=== PATIENT | female | born 1985 | race Hispanic/Latino ===

== ENCOUNTER 2019-12-04 18:57 | Inpatient (IN) | payer BC ==
[2019-12-04] MEDS ORDERED: Ringers Lactate 1,000 ML IV PRN (19:34)
[2019-12-04] MEDS ORDERED: NA CIT/CITRIC AC 30 ML ORAL UDC PO ONE (19:36)
[2019-12-04] MEDS ORDERED: CLINDAMYCIN INJ 600 MG in NA CHLORIDE 0.9% 50 ML IV ONE (19:36)
[2019-12-04] MEDS ORDERED: CLINDAMYCIN 600MG/D5W 600 MG/50 ML BAG IV ONE (19:45)
[2019-12-04] MEDS ORDERED: METOCLOPRAMIDE 10 MG/2mL INJ ONE (19:47)
[2019-12-04] MEDS ORDERED: CLINDAMYCIN 900MG/D5W 0 MG/0 ML IVPB IV ONE (19:47)
[2019-12-04] MEDS ORDERED: FAMOTIDINE 20 MG/2 ML VIAL IV ONE (19:48)
[2019-12-04] MEDS ORDERED: NA CIT/CITRIC AC 30 ML ORAL UDC ONE (19:48)
[2019-12-04] MEDS ORDERED: CEFAZOLIN/SWI 1gm 1 GM/10 ML SYR IV SCH (20:00)
[2019-12-04] MEDS ORDERED: LIDOCAINE 1% MPF 30 ML VIAL ONE (20:00)
[2019-12-04] MEDS ORDERED: METOCLOPRAMIDE 10 MG/2mL INJ IV SCH (20:00)
[2019-12-04] MEDS ORDERED: METHYLERGONOVINE 0.2MG/ML AMP IM ONE (20:00)
[2019-12-04] MEDS ORDERED: CARBOPROST TROME 250 MCG/ML IM ONE (20:00)
[2019-12-04] MEDS ORDERED: Ringers Lactate 1,000 ML IV SCH (20:00)
[2019-12-04] MEDS ORDERED: OXYTOCIN 10 UNIT/ML ML IV ONE (20:05)
[2019-12-04] MEDS ORDERED: MORPHINE SULFATE/PF 1 MG/ML (10 ML AMP) ONE (20:06)
[2019-12-04] MEDS ORDERED: BUPIVACAINE 0.75% (PF) 2 ML SP ONE (20:07)
[2019-12-04] MEDS ORDERED: LIDOCAINE 1% MPF 5 ML VIAL ONE (20:09)
[2019-12-04 20:14] LABS: Absolute Lymphocytes (CBC) 2.3 K/uL (0.7-4.9); Basophils % 0.4 % (0-1.3); Hematocrit 38.2 % (36.0-45.0); Lymphocytes % 27.7 % (15.3-44.8); MPV 9.5 fL (7.6-11.3); RBC Red Blood Cell Count 4.32 M/uL (3.86-4.86)
[2019-12-04] MEDS ORDERED: ONDANSETRON 4 MG (ODT) TAB PO PRN (20:48)
[2019-12-04] MEDS ORDERED: ONDANSETRON 4 MG/2 ML VIAL IV PRN (20:48)
[2019-12-04] MEDS ORDERED: Oxycodone HCl/Acetaminophen 1 TAB TAB PO PRN ×2 (20:48)
[2019-12-04] MEDS ORDERED: BISACODYL 10 MG RECTAL SUPP RECT PRN (20:48)
[2019-12-04] MEDS ORDERED: KETOROLAC 30 MG/ML INJ IV PRN (20:48)
[2019-12-04] MEDS ORDERED: DIPHENHYDRAMINE 25 MG TAB/CAP PO PRN (20:48)
[2019-12-04] MEDS ORDERED: CEFAZOLIN 1GM (PREMIX IV) 1 GM/50 ML BAG IV ONE (20:48)
[2019-12-04] MEDS ORDERED: ACETAMINOPHEN 500 MG TAB PO PRN ×2 (20:48)
[2019-12-04] MEDS ORDERED: KETOROLAC 30 MG/ML INJ IM PRN (20:48)
[2019-12-04] MEDS: OXYTOCIN/LR 20 UNIT/1,000 ML BAG IV SCH (21:00)
[2019-12-04 21:48] VITALS: BMI 26.9
--- NOTE | 2019-12-05 01:40 | OP ---
Surgeon: Rian Mendez MD Indications: This is a 34-year-old 3, para 2, at 37 weeks, [facility]. The patient is known to have a breech presentation, but they had not yet sent her to meet her surgeon and did not plan to deliver in the [facility] [place], but apparently had made no other plans. The patient experienced spontaneous rupture of membranes at [facility] about an hour prior to admission and then started having very strong contractions and therefore dec ided to come here. She had not eaten for 6 hours prior to admission. On admission, she was 6 to 7 c m, breech presentation. Spontaneous rupture of membranes had indeed occurred. 15 to 20 minutes late r, she was 9 cm, but the baby was at the same station. The patient requested . Infection; blood loss; anesthetic complications; injury to bladder, bowel, ureter; postoperative complications; clots in legs; pneumonia discussed. Surgery crew was called, Dr. Winters for Anesthesia, Dr. Radha kat sales vendor surgeon, Dr. Wilkinson for Pediatrics. Description Of Procedure: The patient was taken to surgery. Spinal block was performed. She was pr epped and draped. Time-out was performed. She was given 600 mg of Cleocin as the patient states nir t she is allergic to penicillin and she gets hives. Low-transverse incision was created. Incision w as carried to the fascia. The fascia was incised and incision carried transversely bilaterally. Ant erior and posterior fascial planes were developed with both blunt and sharp dissection. Rectus muscl es were . Peritoneum entered bluntly. Retraction applied. Bladder flap developed. Low-tr ansverse uterine incision created. A 5 pounds 11 ounces male infant was delivered through the incisi on without difficulties, Apgars 8 and 9. Handed off to Dr. Wilkinson. Cord blood specimen obtained, placenta removed manually, uterus cleared of clot and blood and exteriorized. Uterus closed with a r unning locked stitch of 1 chromic. No further bleeding was seen. Estimated blood loss 700 cc or les s. Gutters cleared of clot and blood. Uterus replaced in the peritoneal cavity. Again, suture line inspected, noted to be intact without bleeding. The rectus muscles were reapproximated with 0 Vicry l two interrupted stitches. The fascia was closed with 1 Vicryl running from either angle to the mid line. Subcutaneous tissue closed with 2-0 plain. Ruby applied. The patient tolerated all proced ures well and transferred back to her room in good condition. Final Diagnoses: Intrauterine gestation, 37 weeks, compound breech presentation, requested , spinal block anesthesia. STIVEN/SHREYAS Voice ID: [id number] Report ID: [id number]
[2019-12-05] MEDS ORDERED: CLINDAMYCIN INJ 600 MG in NA CHLORIDE 0.9% 50 ML IV SCH (04:00)
[2019-12-05] MEDS ORDERED: CLINDAMYCIN 600MG/D5W 600 MG/50 ML BAG IV ONE (04:03)
[2019-12-05] MEDS: OXYTOCIN/LR 20 UNIT/1,000 ML BAG IV SCH (08:35)
[2019-12-05] MEDS ORDERED: FAMOTIDINE 20 MG/2 ML VIAL IV SCH (09:00)
--- NOTE | 2019-12-05 12:16 | PN ---
Postoperatively, patient has done quite well. H and H with expected change. Lochia is minimal. Vit als are all stable. Pulse is in the 60 range. We will begin ambulation. Discontinue Quarles and IV a t lunchtime. Begin regular diet at that point too. Full postoperative discussion. Patient wishes t o come back to my office in 1 week for followup visit and her 6-week checkup. We discussed con trol. No post spinal block problems at this point. Patient is AB positive, immune to rubella. We w ill offer Tdap before she leaves. STIVEN/SHREYAS Voice ID: [id number] Report ID: [id number]
[2019-12-05] MEDS: IBUPROFEN 200 MG TAB PO PRN ×2 (14:00→22:00)
[2019-12-05] MEDS ORDERED: MAGNESIUM HYDROXIDE 8% 30 ML PO PRN (20:48)
[2019-12-06 05:54] LABS: RPR (Rapid Plasma Reagin) NON-REACT (NON-REACT)
[2019-12-06] MEDS: IBUPROFEN 200 MG TAB PO PRN (08:30)
[2019-12-06 12:48] VITALS: BP 121/76; TEMP 87
--- NOTE | 2019-12-06 15:31 | PREOPHP ---
Date of Admission: 12/04/2019 This is a 34-year-old 3, para 2, 37 weeks, followed by [facility], noted to borja ve a breech. They tried to turn the baby to no avail. [facility]. Bag of water broke about an hour and a half ago. The patient started havin g hard contractions, decided to come here instead of going there. She was 6-7 cm on admission, that was less than 20 minutes ago and now she is about 9 and +1 station, compound presentation. I can fee l the foot. The patient is quite calm. Baby looks good on the monitor. No labs are available. We have talked to the patient. She says she would prefer a if we have time. We will get ever ything ready. Anesthesia has been notified. Surgical crew, pediatrics, and I will attempt to get an emergency medicine physician assistant surgeon to help me. She is allergic to penicillin, which gives her hives. I have ordered Cleocin 600 mg. Heart and lungs are clear. Pelvic exam is as stated. Allergic to penicillin, but otherwise healthy female. We will proceed to the back where we will either perform a if we have time or vaginal delivery depending upon what the situation is at the time. STIVEN/SHREYAS Voice ID: [id number]
--- NOTE | 2019-12-07 04:03 | DS ---
Date of Discharge: 12/06/2019 Hospital Course: A 34-year-old 3, para 2, with breech presentation, came in from home. Rupt ure of membranes in an active labor 6-7 cm on admission. Requesting section. This was perf ormed at 37 weeks. She was delivered of a 5 pounds 11 ounces, male infant, Apgars [address] Anisha thompson in pediatric attendance. 700 cc blood loss. Low transverse uterine incision. Cleocin pre and postop for prophylaxis . Postoperatively, she is afebrile, ambulating, voiding. Lochia is normal. She will be dismissed this morning to report back to my office or Friday of this w andreafski for staple removal. To report any temperature elevation of 100 degrees or greater, severe pain, heavy bleeding, or any other type of abnormalities. She has already had her Tdap shot. She has no p ost spinal block problems. Dismissed with tramadol, although she may elect to take Motrin instead. Rh positive, immune to Rubella. Final Diagnoses: Intrauterine gestation 37 weeks, breech-compound presentation, primary sec tion, spinal block anesthesia. STIVEN/SHREYAS Voice ID: [id number] Report ID: [id number]
[2019-12-07 19:28] LABS: HBsAG Nonreactive (Nonreactive)
== END 2019-12-06 08:25 | disposition home or self-care (01) | DRG 788 ==
LOC: L&D 18:57 → 2ND-WC 19:32
PROVIDERS: ADMIT Specialist; ATTEND Specialist
PROC: 10D00Z1 Extraction of Products of Conception, Low, Open Approach (ICD-10-PCS; principal; 2019-12-04)
DX: O64.8XX0 Obstructed labor due to other malposition and malpresentation, not applicable or unspecified (principal); Z3A.37 37 weeks gestation of pregnancy; Z37.0 Single live birth
CPT/HCPCS: 36415; 85014; 85025; 86592; 86900; 86901; 87340; 88307; J0690; J2210; J2590; J2765; J7120